=== PATIENT | female | born 1985 | race Asian ===

== ENCOUNTER 2021-09-17 17:10 | Inpatient (IN) | payer BC, SELFPAY ==
--- NOTE | ~2021-09-17 | US_ITS ---
EXAMINATION: US OB limited, US umbilical doppler DATE: 09/17/2021 17:57 (accession [id number]), 09/17/2021 17:58 (accession [id number]) INDICATION: Intrauterine growth retardation during third trimester TECHNIQUE: Real-time ultrasound of the pelvis was performed. The interpreting radiologist was not pre sent for the study. COMPARISON: None. FINDINGS: There is a single living fetus in breech presentation. The placenta is anterior. card iac activity and movement are noted. heart rate is 138 beats per minute (bpm). The amniot ic fluid index is 2.3 cm which is low (normal range: 7.5 cm to 24.4 cm) . Umbilical artery pulsed Doppler demonstrates peak systolic to end-diastolic velocity ratios (S/D rati os) of 1.8 near the fetus, 1.8 in the mid cord, and 1.8 near the placenta (5th percentile = 1.94, 95t h percentile = 3.18). IMPRESSION: 1. Single living fetus in breech presentation. 2. Oligohydramnios. 3. Umbilical artery Doppler ratios are greater than two standard deviations below the mean. Reviewed, dictated and finalized at location [facility] OPERATOR IMPRESSION: 1. Single living fetus in breech presentation. 2. Oligohydramnios. 3. Umbilical artery Doppler ratios are greater than two standard deviations bel ow the mean.
[2021-09-17 19:12] VITALS: BP 117/86; PULSE 90
[2021-09-17 19:16] VITALS: BP 116/81; PULSE 86
[2021-09-17 20:44] LABS: Basophils Percent Auto 0.4 % (0.2-1.2); Eosinophils Absolute Auto 0.1 K/mm3 (0-0.3); Hematocrit 38.4 % (37.0-47.0); Hemoglobin 12.9 g/dL (12.0-15.0); Immature Granulocyte Absolute 0.02 K/mm3 (0.00-0.031); Immature Granulocyte Percent A 0.3 % (0-0.5); Lymphocytes Percent Auto 34.1 % (18.3-44.2); Mean Corpuscular HGB Conc 33.6 g/dl (32-36); Mean Corpuscular Hemoglobin 30.3 pg (26-34); Mean Corpuscular Volume 90.1 fl (80-100); Mean Platelet Volume 10.7 fl (7.4-10.4); Monocytes Absolute Auto 0.6 K/mm3 (0.1-0.6); Monocytes Percent Auto 9.2 % (2.6-8.5); Neutrophils Absolute Auto 3.7 K/mm3 (1.3-6.7); Platelet Count Result 222 k/mm3 (150-375); Red Blood Count 4.26 M/mm3 (4.2-5.4); Red Cell Distribution Width 13.1 % (11.5-14.5); White Blood Count 6.8 K/mm3 (4.5-10.0)
[2021-09-17 20:48] VITALS: BMI 22.1
[2021-09-17 23:33] VITALS: BP 124/78; PULSE 71
[2021-09-17 23:38] LABS: Glucose Point of Care 108 mg/dl (65-105)
[2021-09-17 23:59] VITALS: TEMP 36.6
[2021-09-18] VITALS (64 sets, daily range): BP systolic 101–147; BP diastolic 37–95; PULSE 31–87; RESP 15–18; TEMP 36.4–36.9; O2SAT 72–100
[2021-09-18 06:00] LABS: Glucose Point of Care 80 mg/dl (65-105)
[2021-09-18 07:23] LABS: Rapid Plasma Reagin Non-Reactive (NonReactive)
--- NOTE | 2021-09-18 09:01 | WPDANESEPP ---
Anes - Eval Pre Procedure Procedure: Section Date/Time: 09/18/21 09:01 Surgeon: Kathleen Preop Diagnosis: Oligohydramnios, IUGR, Breech Pre Op Diagnosis: iugr Patient Data Age: 36 Gender: F Height: 1.57 m Weight: 55 kg Last Vital Signs Temp 98.1 F 09/18/21 08:00 Pulse 82 09/18/21 08:23 Resp 16 09/18/21 08:00 BP 122/85 09/18/21 08:23 Allergies Allergy/AdvReac Type Severity Reaction Status Date / Time No Known Allergies Allergy Verified 09/05/21 14:46 Home Medications Medication Instructions Recorded Confirmed Type PNV cmb#95-ferrous fumarate-FA 1 tablet PO DAILY 09/05/21 09/17/21 History [] aspirin 81 mg PO DAILY 09/05/21 09/17/21 History ergocalciferol (vitamin D2) 1,250 mcg PO WEEKLY 09/05/21 09/17/21 History [Vitamin D2] Laboratory Tests 09/17/21 09/17/21 09/17/21 20:35 20:35 20:35 WBC 6.8 K/mm3 K/mm3 (4.5-10.0) RBC 4.26 M/mm3 M/mm3 (4.2-5.4) Hgb 12.9 g/dL g/dL (12.0-15.0) Hct 38.4 % % (37.0-47.0) MCV 90.1 fl fl (80-100) MCH 30.3 pg pg (26-34) MCHC 33.6 g/dl g/dl (32-36) RDW 13.1 % % (11.5-14.5) Plt Count 222 k/mm3 k/mm3 (150-375) MPV 10.7 fl H fl (7.4-10.4) Immature Gran % (Auto) 0.3 % % (0-0.5) Neut % (Auto) 55.0 % % (45.5-73.1) Lymph % (Auto) 34.1 % % (18.3-44.2) [place] % (Auto) 9.2 % H % (2.6-8.5) Eos % (Auto) 1.0 % % (0-4.4) Baso % (Auto) 0.4 % % (0.2-1.2) Lymph # (Auto) 2.30 K/mm3 K/mm3 (0.9-3.2) [place] # (Auto) 0.6 K/mm3 K/mm3 (0.1-0.6) Eos # (Auto) 0.1 K/mm3 K/mm3 (0-0.3) Baso # (Auto) 0.0 K/mm3 K/mm3 (0.0-0.1) Abs Immat Gran (auto) 0.02 K/mm3 K/mm3 (0.00-0.031) Absolute Neuts (auto) 3.7 K/mm3 K/mm3 (1.3-6.7) Absolute Nucleated RBC 0.0 K/mm3 K/mm3 (0.0-0.012) Nucleated RBC % 0.0 % % (0.0-0.2) POC Capillary Glucose RPR Non-reactive (NonReactive) Blood Type B Positive Antibody Screen Negative 09/17/21 09/18/21 23:29 05:54 WBC RBC Hgb Hct MCV MCH MCHC RDW Plt Count MPV Immature Gran % (Auto) Neut % (Auto) Lymph % (Auto) [place] % (Auto) Eos % (Auto) Baso % (Auto) Lymph # (Auto) [place] # (Auto) Eos # (Auto) Baso # (Auto) Abs Immat Gran (auto) Absolute Neuts (auto) Absolute Nucleated RBC Nucleated RBC % POC Capillary Glucose 108 mg/dl H mg/dl 80 mg/dl mg/dl (65-105) (65-105) RPR Blood Type Antibody Screen : gestational age (10/02/21) Patient hx anesthesia problems: none Family hx anesthesia problems: none Results Review: All pre-operative results and documents have been reviewed as part of the pre-operative evaluation. FORMERLY [facility] Family History Family History (Updated 09/05/21 @ 14:49 by Wagner Tavares RN) Father Hypertension Cerebrovascular accident Social History Social History Smoking status: Never smoker Second hand tobacco smoke exposure: No Substance use: never Spiritual care concerns: No Exam Day of Procedure 09/18/21 09:01
--- NOTE | 2021-09-18 10:29 | PM.IMHP ---
H&P: HPI History of Present Illness Date/Time: 09/18/21 10:29 Chief Complaint: IUGR Narrative: 36 yo G1 at 38 weeks EGA with recent diagnosis of IUGR, abnormal dopplers, and oligohydramnios. also breech. Plan to proceed with primary Csection. also complicated by GDMA1. labs: B+, HIV -, RPR -, HBSAg -, Rubella immune, GBS -. [facility] Past Medical History Medical History (Updated 09/18/21 @ 10:33 by Marielos Wang MD) Anxiety Depression Family History Family History (Updated 09/05/21 @ 14:49 by Wagner Tavares RN) Father Hypertension Cerebrovascular accident Social History Social History Smoking status: Never smoker Second hand tobacco smoke exposure: No Substance use: never Spiritual care concerns: No Meds Home Medications and Allergies Home Medications Medication Instructions Recorded Confirmed Type PNV cmb#95-ferrous fumarate-FA 1 tablet PO DAILY 09/05/21 09/17/21 History [] aspirin 81 mg PO DAILY 09/05/21 09/17/21 History ergocalciferol (vitamin D2) 1,250 mcg PO WEEKLY 09/05/21 09/17/21 History [Vitamin D2] Allergies Allergy/AdvReac Type Severity Reaction Status Date / Time No Known Allergies Allergy Verified 09/05/21 14:46 Vital Signs Vital Signs - 24 hr 09/17/21 19:12 09/17/21 19:16 09/17/21 23:33 Temperature Pulse Rate 90 86 71 Respiratory Rate Blood Pressure 116/81 124/78 Blood Pressure [Left Arm] 117/86 09/17/21 23:59 09/18/21 05:56 09/18/21 08:00 Temperature 98 F 98.1 F Pulse Rate 72 Respiratory Rate 16 Blood Pressure 101/61 Blood Pressure [Left Arm] 09/18/21 08:23 Temperature Pulse Rate 82 Respiratory Rate Blood Pressure 122/85 Blood Pressure [Left Arm] Exam Const: General: healthy appearing and comfortable Orientation/consciousness: patient oriented x3 GI: Inspection: other (gravid) GI Palp: No abdominal tenderness and Yes Other GI palpation findings present (Fundal height 32 cm) Auscultation: other (FHTs reactive) H&P: Results Labs Labs: Short CBC 09/17/21 Range/Units 20:35 WBC 6.8 (4.5-10.0) K/mm3 Hgb 12.9 (12.0-15.0) g/dL Hct 38.4 (37.0-47.0) % Plt Count 222 (150-375) k/mm3 Assessment and Plan Assessment and plan (1) 38 weeks gestation of : Code(s): Z3A.38 - 38 weeks gestation of Status: Acute (2) Breech presentation: Code(s): O32.1XX0 - Maternal care for breech presentation, not applicable or unspecified Status: Acute Assessment and Plan: Plan to proceed with primary csection (3) IUGR (intrauterine growth restriction): Status: Acute (4) Oligohydramnios: Code(s): O41.00X0 - Oligohydramnios, unspecified trimester, not applicable or unspecified Status: Acute
[2021-09-18] MEDS: LACTATED RINGERS 1,000 ML 999 ML IV CONT (10:42)
[2021-09-18 10:47] LABS: Glucose Point of Care 76 mg/dl (65-105)
[2021-09-18] MEDS: LACTATED RINGERS 1,000 ML 125 ML IV CONT (11:13)
--- NOTE | 2021-09-18 11:34 | WPDHPUPDATE1 ---
History and Physical Update Update Date/Time: 09/18/21 11:34 History and Physical has been reviewed, including an updated exam of the patient. There are NO changes in the patient's condition. Risks, benefits, and alternatives have been discussed and questions answered. Patient agrees to proceed with procedure.
[2021-09-18] MEDS: ceFAZolin 2 GM/D5W 50 ML 2 GM/50 ML BAG IVPB (11:56)
[2021-09-18] MEDS: diphenhydrAMINE HCl INJ 50 MG/ML VIAL 25 MG IV PUSH (12:31)
--- NOTE | 2021-09-18 12:37 | W.PM.PROC2 ---
Procedure Note - Detailed Date of Procedure 09/18/21 Pre-op Diagnosis IUGR with elevated Dopplers and oligohydramnios intrauterine at 38 weeks breech Post-op Diagnosis same Procedure Performed primary low-transverse section Surgeon Marielos Wang MD Anesthesia spinal Findings male infant in the breech presentation with the left foot down and right foot up; Apgars of 9 and 9 with infant weight of 5lb 7oz; normal-appearing tubes and ovaries; multiple fibroids the largest in the posterior midline (approximately 4cm)with several smaller on the posterior surface, 1 at the left cornual a approximately 3cm Description of Procedure the patient was taken to the operating room and placed under anesthesia in the dorsal supine position with a leftward tilt. Once anesthesia was deemed adequate a Pfannenstiel skin incision was made with a scalpel and carried down to the underlying layer of fascia which was nicked in the midline. Fascial incision was extended laterally using Monroy scissors. Ochsner was used to tent the fascia which was then dissected off using sharp and blunt dissection. The peritoneum was tented and entered with Metzenbaum scissors. The incision was extended with blunt traction. The vesicouterine peritoneum was tented and entered with Metzenbaum scissors and extended laterally. The bladder flap was created digitally. The bladder blade is replaced. Lower uterine segment was incised in a transverse fashion with the scalpel and extended laterally using blunt traction. Membranes were ruptured with clear fluid with minimal fluid noted. The infant's was palpated and noted to have the left foot down but the right foot was not reachable the infant's foot was grasped and the pulled to the hips the right leg then delivered the infant was delivered to the scapula and rotated. The right arm was splinted and delivered the was rotated and the left arm splinted and delivered. The head delivered spontaneously upon extending the infant on the abdomen. Nuchal cord x2 was reduced. The placenta was removed using manual traction. Cord blood and gases are taken prior to removal. The uterus is cleared of all clots and debris. The incision was closed using 0 Monocryl in a running locked fashion with the same suture used to obtain hemostasis and imbricate. The cul-de-sac is irrigated and the uterus returned to the abdomen. The gutters are irrigated. The uterine incision was again inspected noted to be hemostatic. The fascia was closed using 0 Vicryl in a running fashion. Subcutaneous tissues were irrigated and made hemostatic using Bovie cautery. The skin incision was closed using 4-0 Vicryl in a subcuticular fashion. Dermaflex was placed over the incision. Sponge, needle, and instrument counts are correct per the OR staff. Patient received 2g of Ancef at room time. Drains Yes ( [place] catheter) Packing No Pathology yes ( placenta) Complications No immediate complications Condition stable Disposition floor
[2021-09-18] MEDS: KETOROLAC 30 MG/ML VIAL (*BKC) IV PUSH (12:39)
--- NOTE | 2021-09-18 12:42 | PM.OBDSVD ---
DS: Admitting Diagnosis Discharge Date 09/21/21 Admitting Diagnosis intrauterine at 38 weeks with IUGR and breech presentation gestational diabetes diet controlled DS: Discharge Diagnosis Discharge Diagnosis (1) IUGR (intrauterine growth restriction): Status: Acute (2) Breech presentation: Code(s): O32.1XX0 - Maternal care for breech presentation, not applicable or unspecified Status: Acute (3) 38 weeks gestation of : Code(s): Z3A.38 - 38 weeks gestation of Status: Acute (4) Oligohydramnios: Code(s): O41.00X0 - Oligohydramnios, unspecified trimester, not applicable or unspecified Status: Acute (5) delivery delivered: Code(s): O82 - Encounter for delivery without indication Status: Acute OB - DS: Summary OB Procedures : NST and Ultrasound OB Procedures Intrapartum: low cervical, transverse OB Procedures: : None Peripartum Data Delivery Method: Section Procedures: Procedures Operation Date: 09/18/21 12:00 <No data on this case meets the specified criteria> complications: none Status at Discharge Functional status at discharge: independent ambulation Overall status at discharge: patient is progressing back to baseline Time Spent with Patient Time attestation: Total time spent providing and/or coordinating discharge services: DS: Data Data Completed and Pending Labs on day of discharge: Labs from last 24 hours 09/18/21 09/18/21 09/17/21 10:38 05:54 23:29 WBC RBC Hgb Hct MCV MCH MCHC RDW Plt Count MPV Immature Gran % (Auto) Neut % (Auto) Lymph % (Auto) [place] % (Auto) Eos % (Auto) Baso % (Auto) Lymph # (Auto) [place] # (Auto) Eos # (Auto) Baso # (Auto) Abs Immat Gran (auto) Absolute Neuts (auto) Absolute Nucleated RBC Nucleated RBC % POC Capillary Glucose 76 80 108 H RPR Blood Type Antibody Screen 09/17/21 09/17/21 09/17/21 20:35 20:35 20:35 WBC 6.8 RBC 4.26 Hgb 12.9 Hct 38.4 MCV 90.1 MCH 30.3 MCHC 33.6 RDW 13.1 Plt Count 222 MPV 10.7 H Immature Gran % (Auto) 0.3 Neut % (Auto) 55.0 Lymph % (Auto) 34.1 [place] % (Auto) 9.2 H Eos % (Auto) 1.0 Baso % (Auto) 0.4 Lymph # (Auto) 2.30 [place] # (Auto) 0.6 Eos # (Auto) 0.1 Baso # (Auto) 0.0 Abs Immat Gran (auto) 0.02 Absolute Neuts (auto) 3.7 Absolute Nucleated RBC 0.0 Nucleated RBC % 0.0 POC Capillary Glucose RPR Non-reactive Blood Type B Positive Antibody Screen Negative Discharge Plan Discharge Attending physician on discharge: Marielos Wang Discharging Clinician: Marielos Wang Anticipated Discharge Date/Time: 09/21/21 12:43 Patient Disposition: Home, Self-Care Activity: may shower, may drive after 2 weeks and pelvic rest Diet: regular Wound Care Instructions: incision open to air Patient Instructions: Antibiotic Form Stand Alone Forms: General Discharge Information Follow-up/Referrals: Marielos Wang MD [Physician] - 1 Week (and 6 wk) Discharge Medications: New hydrocodone-acetaminophen 5-325 mg Tablet 1 tablet PO Q3H PRN (Reason: Moderate Pain (4-6)) Qty: 15 RF: 0 norethindrone (contraceptive) 0.35 mg tablet 0.35 mg PO DAILY Qty: 84 RF: 3 Continued PNV cmb#95-ferrous fumarate-FA [] 28 mg iron- 800 mcg Tablet 1 tablet PO DAILY RF: 0 ergocalciferol (vitamin D2) [Vitamin D2] 1,250 mcg (50,000 unit) Capsule 1,250 mcg PO WEEKLY RF: 0 Discontinued aspirin 81 mg Tablet 81 mg PO DAILY RF: 0 Date of admission: 09/17/21 17:10 Primary Care Provider: Fabiola,Brando Admitting Provider: Marielos Wang Attending physician on admission: Marielos Wang Condition: Stable
[2021-09-18] MEDS: OXYTOCIN 30 UNITS/NS 500 ML 30 UNITS/500 ML BAG 125 UNITS IV CONT (14:51)
--- NOTE | 2021-09-18 15:47 | OBPPTRN ---
1506-Patient transferred to post room #290 via stretcher. Support person present. Oriented to unit, room, information board, rooming in, admission packet and security measures. Patient verbalizes understanding.
[2021-09-18] MEDS: DOCUSATE SODIUM 100 MG CAPSULE PO (16:25)
[2021-09-18] MEDS: HYDROcodone/acetaminophen (*CRX) 5-325 MG TABLET 1 TAB PO (16:26)
--- NOTE | 2021-09-18 17:39 | PC.NURSE ---
1545 - 1603 Discussed plans for feeding baby. Mom desires to try to breastfeed. Reviewed infant feeding cues. Demonstrated stimulation techniques to wake infant for feeding by undressing down to the diaper and placing skin to skin. Baby is not showing any feeding signs at this time. 1645 Primary RN request assistance to latch infant. is showing feeding cues. Assisted with to breast in cross cradle. Mom is reluctant to hold onto and bring baby to the breast when there is effective gaping. Reviewed positioning/alignment, holding breast and asymmetrical latch on. Infant was able to latch correctly in football position for about 5 min. without discomfort to mom. There was multiple attempts to work with mom and baby to achieve an effective latch. nursed eagerly, with steady draws with rare swallowing visualized. Reviewed signs of a correct latch, effective nursing and suck swallow ratio. Nipple care reviewed. Infant was able to latch effectively to the righ t breast in the football position without discomfort to mom after multiple attemts. Baby tends to attempt <140 degrees gap and shallow latch. Instructed mother to call out for RN assistance if she is unable to latch infant for feeding or she has discomfort with nursing. Reviewed responsive feeding after observing feeding cues or place skin to skin to attempt to breastfeed every 3 hours. (8-12 times in 24 hours) Mother voiced understanding of information shared but will need to be reinforced. Reported to primary RN at 1730.
[2021-09-18] MEDS: DEXTROSE 5%/0.45% SOD CHL 1,000 ML 125 ML IV CONT (19:08)
[2021-09-19] MEDS: HYDROcodone/acetaminophen (*CRX) 5-325 MG TABLET 1 TAB PO ×5 (01:14→21:09)
[2021-09-19] MEDS: SIMETHICONE 80 MG TAB.CHEW PO ×2 (01:14→08:18)
[2021-09-19] MEDS: IBUPROFEN 600 MG TABLET PO ×3 (01:15→16:59)
[2021-09-19 03:30] VITALS: BP 115/71; PULSE 71; RESP 18; TEMP 37.1
[2021-09-19 06:02] LABS: Basophils Absolute Auto 0.1 K/mm3 (0.0-0.1); Basophils Percent Auto 0.4 % (0.2-1.2); Eosinophils Percent Auto 0.2 % (0-4.4); Hematocrit 30.1 % (37.0-47.0); Hemoglobin 10.1 g/dL (12.0-15.0); Immature Granulocyte Absolute 0.05 K/mm3 (0.00-0.031); Immature Granulocyte Percent A 0.4 % (0-0.5); Lymphocytes Absolute Auto 1.99 K/mm3 (0.9-3.2); Lymphocytes Percent Auto 14.4 % (18.3-44.2); Mean Corpuscular HGB Conc 33.6 g/dl (32-36); Mean Corpuscular Hemoglobin 30.1 pg (26-34); Mean Corpuscular Volume 89.6 fl (80-100); Mean Platelet Volume 10.8 fl (7.4-10.4); Monocytes Percent Auto 7.4 % (2.6-8.5); Neutrophils Absolute Auto 10.7 K/mm3 (1.3-6.7); Neutrophils Percent Auto 77.2 % (45.5-73.1); Platelet Count Result 171 k/mm3 (150-375); Red Blood Count 3.36 M/mm3 (4.2-5.4); White Blood Count 13.9 K/mm3 (4.5-10.0)
[2021-09-19] MEDS: DOCUSATE SODIUM 100 MG CAPSULE PO ×2 (06:33→16:58)
[2021-09-19 08:00] VITALS: BP 113/83; PULSE 70; RESP 16; TEMP 36.4; O2SAT 98
--- NOTE | 2021-09-19 08:00 | PM.OBPNVD ---
OB - PN: Subj Subjective Date/time seen: 09/19/21 08:00 POD 1. Pain well controlled/minimal bleeding. Not out of bed yet. Diet tolerated. OB - PN: Obj Data Labs CBC & Chem 7: 09/19/21 03:16 Labs: Laboratory Results - last 24 hr 09/18/21 09/19/21 10:38 03:16 WBC 13.9 H RBC 3.36 L Hgb 10.1 L Hct 30.1 L MCV 89.6 MCH 30.1 MCHC 33.6 RDW 13.0 Plt Count 171 MPV 10.8 H Immature Gran % (Auto) 0.4 Neut % (Auto) 77.2 H Lymph % (Auto) 14.4 L [place] % (Auto) 7.4 Eos % (Auto) 0.2 Baso % (Auto) 0.4 Lymph # (Auto) 1.99 [place] # (Auto) 1.0 H Eos # (Auto) 0.0 Baso # (Auto) 0.1 Abs Immat Gran (auto) 0.05 H Absolute Neuts (auto) 10.7 H Absolute Nucleated RBC 0.0 Nucleated RBC % 0.0 POC Capillary Glucose 76 OB - PN A/P Assessment and Plan (1) care and examination: Code(s): Z39.2 - Encounter for routine follow-up Status: Acute Assessment and Plan: Routine postop/ care. Time Spent With Patient Time: Total time spent is greater than 50% in coordination of care (as documented) at patient's floor/unit and/or counseling patient: Exam GI: Inspection: normal to inspection and incision (c/d/i) GI Palp: Yes abdominal tenderness (appropriate) Auscultation: normal bowel sounds
[2021-09-19] MEDS: MULTIVIT/MIN/PREN/FOL AC/IRON TABLET 1 TAB PO (08:17)
--- NOTE | 2021-09-19 11:15 | WPDANLDPN2 ---
Anes-Prog Note L&D Date/Time: 09/19/21 11:15 Comfortable throughout: section Neuraxial method: spinal Epidural/Spinal procedure site: clean & non-tender Neuro status: Neuro function grossly intact. Cardiovascular status: normal Respiratory status: normal Airway patency: baseline Mental status: baseline Post-Op hydration status: normal Vital Signs: Last Vital Signs Temp 97.6 F 09/19/21 08:00 Pulse 70 09/19/21 08:00 Resp 16 09/19/21 08:00 BP 113/83 09/19/21 08:00 Pulse Ox 98 09/19/21 08:00 Pain score (VAS): 0 I/O: Intake & Output 09/18/21 09/19/21 09/19/21 23:59 07:59 15:59 Intake Total 1200 500 Output Total 1250 800 Balance -50 -300 Post-procedural complaints: none Patient feedback: Patient satisfied with anesthetic care.
--- NOTE | 2021-09-19 11:16 | WPDANLDNPN2 ---
Anes-Prog Note L&D-Neuraxial Date/Time: 09/19/21 11:16 Neuraxial medications: intrathecal PF morphine Opiod-related complaints: none Patient feedback: Patient satisfied with post-operative pain management.
[2021-09-19 12:00] VITALS: BP 109/71; PULSE 69; RESP 16; TEMP 36.6; O2SAT 98
[2021-09-19 20:20] VITALS: BP 101/66; PULSE 67; RESP 16; TEMP 37.1; O2SAT 98
[2021-09-20] MEDS: SIMETHICONE 80 MG TAB.CHEW PO (02:14)
[2021-09-20] MEDS: HYDROcodone/acetaminophen (*CRX) 5-325 MG TABLET 1 TAB PO ×6 (02:14→22:18)
[2021-09-20] MEDS: IBUPROFEN 600 MG TABLET PO ×4 (02:15→22:17)
[2021-09-20 08:00] VITALS: BP 106/72; PULSE 78; RESP 16; TEMP 36.7; O2SAT 99
[2021-09-20] MEDS: MULTIVIT/MIN/PREN/FOL AC/IRON TABLET 1 TAB PO (08:22)
[2021-09-20] MEDS: DOCUSATE SODIUM 100 MG CAPSULE PO ×2 (08:22→16:14)
--- NOTE | 2021-09-20 12:32 | PM.OBPNVD ---
OB - PN: Subj Subjective Date/time seen: 09/20/21 12:32 Overall improving, mobility improved but still difficult. No other sig issues. OB - PN: Obj Data Labs CBC & Chem 7: 09/19/21 03:16 OB - PN A/P Plan day: 2 Plan: routine care Comments: Unsure if desires home tomorrow or Tuesday. Time Spent With Patient Time: Total time spent is greater than 50% in coordination of care (as documented) at patient's floor/unit and/or counseling patient: Time with patient: less than 15 minutes
[2021-09-20 18:34] VITALS: BP 122/79; PULSE 76; RESP 16; TEMP 37; O2SAT 99
--- NOTE | 2021-09-20 20:24 | PC.NURSE ---
09/20/2021 at 1920 Patient viewed the discharge video Mother & Baby Care, The First Two Weeks . Patient was given the opportunity and encouraged to ask questions. Patient verbalized understanding of information shared and has been given the mother/baby guide for home reference.
[2021-09-21] MEDS: IBUPROFEN 600 MG TABLET PO ×2 (04:17→15:10)
[2021-09-21] MEDS: HYDROcodone/acetaminophen (*CRX) 5-325 MG TABLET 1 TAB PO ×4 (04:20→19:38)
[2021-09-21] MEDS: MULTIVIT/MIN/PREN/FOL AC/IRON TABLET 1 TAB PO (08:14)
[2021-09-21] MEDS: DOCUSATE SODIUM 100 MG CAPSULE PO ×2 (08:14→18:39)
[2021-09-21] MEDS: SIMETHICONE 80 MG TAB.CHEW PO ×2 (08:14→15:10)
[2021-09-21 08:15] VITALS: BP 144/87; PULSE 72; RESP 18; TEMP 36.8; O2SAT 100
--- NOTE | 2021-09-21 10:25 | PM.OBPNVD ---
OB - PN: Subj Subjective Date/time seen: 09/21/21 10:25 Patient comments: no complaints and pain well controlled baby status: doing well OB - PN: Obj Data Labs CBC & Chem 7: 09/19/21 03:16 OB - PN A/P Plan day: 3 Plan: routine care Time Spent With Patient Time: Total time spent is greater than 50% in coordination of care (as documented) at patient's floor/unit and/or counseling patient: Exam Narrative: inc c/d/i : Bimanual exam- vagina & uterus: other (Uterus firm, nt @U)
--- NOTE | 2021-09-21 13:55 | PC.NURSE ---
0835 - Baby is skin to skin on mom showing feeding cues. Mom led discussion with regards to how feeding baby has been going this past weekend. Mom states her nipples are sore from for two hours. RN reviewed feeding cues, frequencies, duration of feedings, feeding elimination flow sheet, and signs of adequate intake. Assisted with to the right breast in cross cradle position. Nipple care reviewed. Reviewed positioning/alignment, holding breast and asymmetrical latch on. was able to latch correctly. nursed eagerly, with steady draws with occasional swallowing noted. Reviewed signs of a correct latch, effective nursing and suck swallow ratio. Infant was able to maintain latch without discomfort to mother for 10 min, then mom detached infant. 0855 - Encouraged cross cradle position to the left breast. Mother states she is without discomfort and baby effectively breastfed for 10-12 min. Instructed mother to call out for RN assistance if she is unable to latch for feeding or she has discomfort with nursing. Initiate Mother voiced understanding of information shared and to watch for feeding cues and initiate feeding approximately 2-3 hours from the start of the last feeding. Reported to primary RN.
--- NOTE | 2021-09-21 14:47 | PC.NURSE ---
0915 - Breast pump provided due to in phototherapy, ineffective and mother's desire to make human milk. Instructions given on breast pump care and usage, pumping schedule (minimal 8 times in 24 hours with 1-2 times at night), nipple care, and collection and storage of breast milk reviewed in the mom and baby guide. Encouraged [id number], breast massage and hand expression to stimulate supply. Pumping schedule to be recorded on the feeding sheet. Assessed patient for correct flange size, placement and draw. Patient verbalizes and demonstrates understanding of instructions. Nipple care/positioning/latch reviewed. Mom states her nipples are sore and she is okay with bottle feeding . Reviewed community resources and outpatient in the Mom/Baby guide. Mother has no further questions at this time. Reported to primary RN.
[2021-09-21 19:30] VITALS: BP 128/85; PULSE 88; RESP 16; TEMP 36.9; O2SAT 99
[2021-09-22] MEDS: HYDROcodone/acetaminophen (*CRX) 5-325 MG TABLET 1 TAB PO ×2 (00:39→08:42)
[2021-09-22] MEDS: IBUPROFEN 600 MG TABLET PO ×2 (00:39→08:43)
[2021-09-22] MEDS: SIMETHICONE 80 MG TAB.CHEW PO (00:40)
--- NOTE | 2021-09-22 07:27 | PM.OBPNVD ---
OB - PN: Subj Subjective Date/time seen: 09/22/21 07:27 Patient comments: no complaints and pain well controlled baby status: doing well OB - PN: Obj Data Labs CBC & Chem 7: 09/19/21 03:16 OB - PN A/P Plan day: 4 Plan: routine care, discharge home and other (plans micronor for control) Time Spent With Patient Time: Total time spent is greater than 50% in coordination of care (as documented) at patient's floor/unit and/or counseling patient: Exam Narrative: inc c/d/i bruising below : Bimanual exam- vagina & uterus: other (Uterus firm, nt @U)
[2021-09-22 08:30] VITALS: BP 136/83; PULSE 68; RESP 16; TEMP 36.6; O2SAT 98
[2021-09-22] MEDS: MULTIVIT/MIN/PREN/FOL AC/IRON TABLET 1 TAB PO (08:42)
[2021-09-22] MEDS: DOCUSATE SODIUM 100 MG CAPSULE PO (08:42)
--- NOTE | 2021-09-22 12:15 | PC.NURSE ---
Patient viewed the discharge video Mother & Baby Care, The First Two Weeks . Patient was given the opportunity and encouraged to ask questions. Patient verbalized understanding of information shared and has been given the mother/baby guide for home reference.
--- NOTE | 2021-09-22 12:56 | PC.NURSE ---
[id number] Mother led the conversation with regards to her experience feeding her baby. Reminded parents to use good handwashing to prevent infection. Infant has had 8-10 feedings in the past 24 hours and meets the outcomes for weight, output and jaundice. Mother states she feels confident to continue feeding her at home. Reviewed production of human milk, transition of milk, signs of adequate intake and engorgement prevention/relief and when to call the care provider with the mom and baby guide resource.Reinforced responsive feeding when feeding cues are visualized or three hours from the start of the last feeding. Reviewed information regarding pump care, hand washing, nipple care and pumping 8 times in 24 hours (1-2 at night) for 10-15 minutes for milk production. Mom states she will get on a schedule when she gets home. Discussed she may want to pump after feedings or between feedings. If after feeding, rest for 5-10 minutes. Get something to eat/drink, use the restroom, then pump. Collection and storage of human milk per mom and baby guide. Encouraged mom to place skin to skin, breast massage and use hand expression and/or a breast pump in a relaxing atmosphere. Reviewed recording pumping schedule on the feeding sheet or pumping log. Referred to the mom and baby guide as a resource for community support, outpatient services and when to call the infant/maternal provider. Reported to primary RN.
[2021-09-23 10:25] VITALS: BP 116/80; PULSE 86; RESP 20; TEMP 37.2; O2SAT 100
== END 2021-09-22 12:45 | disposition home or self-care (01) | DRG 787 ==
LOC: ANHLDR 19:14 → ANHOBPP 19:25 → ANHLDR 09-18 14:38 → ANHOB2 09-18 15:13
PROVIDERS: Admitting Provider Obstetrics & Gynecology Gynecology; PCP Family Medicine; Visit Provider Obstetrics & Gynecology Gynecology
PROC: 10D00Z1 Extraction of Products of Conception, Low, Open Approach (ICD-10-PCS; CPT 59514; principal; 2021-09-18 12:00)
DX: O36.5930 Maternal care for other known or suspected poor fetal growth, third trimester, not applicable or unspecified (principal); O41.03X0 Oligohydramnios, third trimester, not applicable or unspecified; O32.1XX0 Maternal care for breech presentation, not applicable or unspecified; O69.81X0 Labor and delivery complicated by cord around neck, without compression, not applicable or unspecified; O24.420 Gestational diabetes mellitus in childbirth, diet controlled; Z3A.38 38 weeks gestation of pregnancy; Z37.0 Single live birth
CPT/HCPCS: 36415; 59025; 76815; 76820; 82948; 85025; 86592; 86850; 86900; 86901; 88307; A9270; J0131; J0690; J1100; J1200; J1885; J2210; J2274; J2405; J2590; J7120